=== PATIENT | male | born 2000 | race Caucasian/White ===

== ENCOUNTER 2024-06-22 11:48 | Day surgery (SDC) | payer BC ==
[~2024-06-22] VITALS: Ht 182.9 cm; Wt 89.0 kg
[~2024-06-22 11:48] MED LIST: ACET120S PR; Lactated Ringer's 1,000 ML IV ONE; PROM12.5S PR; RXPROMSY PO
[2024-06-22] MEDS ORDERED: Lactated Ringer's 1,000 ML IV ONE (12:28)
[2024-06-22] MEDS ORDERED: propofoL 40 ML IV ONE (12:40)
[2024-06-22] MEDS ORDERED: FentaNYL Citrate 50 MCG/ML 2 ML Injection ONE (12:40)
[2024-06-22] MEDS ORDERED: Rocuronium Bromide 10 MG/ML 5ML Injection IV ONE ×2 (12:55)
[2024-06-22] MEDS ORDERED: Ondansetron HCl 2 MG / ML 2ML Vial ONE (13:44)
[2024-06-22] MEDS ORDERED: Dexamethasone Sod Phos 10 MG/ML 1ML VIAL ONE (13:44)
--- NOTE | 2024-06-22 13:53 | NUR ---
06/22/24 [facility] DR ENAMORADO, ANESTHESIA ORDERED 2 MG VERSED. PATIENT WOULD LIKE TO REFUSE THIS MEDICATION AND STATES HE DOES NOT NEED IT. PER DR ENAMORADO, ORDER IS "IF NEEDED" OK TO PROCEED WITHOUT.
--- NOTE | 2024-06-22 14:09 | NUR ---
06/22/24 1409 Kiki Troncoso 5ML OF LIDOCAINE 2% WITH EPI 1:100,000 DILUTED WITH NACL 1:1 TO MAKE LIDOCAINE 1% WITH EPI 1:200,000 FOR INJECTION AT [facility].
[2024-06-22] MEDS ORDERED: Lidocaine 2%-Epineph 1:100000 20 ML MDV INJ ONE (14:12)
[2024-06-22 15:18] VITALS: BP 103/58
--- NOTE | 2024-06-22 16:04 | NUR ---
06/22/24 [address] PT UNDERSTOOD DISCHARGE INSTRUCTIONS. MOM LATOSHA HERE WITH HIM TO VERIFY HE NEEDED TO TAKE 2 WEEKS OFF VOLLEY[employer]ALL DRANK WATER AND ATE SALTINES WITHOUT ISSUE
== END 2024-06-22 16:00 | disposition home or self-care (01) ==
LOC: ORSCSDS 11:48
PROVIDERS: Otolaryngology
PROC: 0HB1XZX Excision of Face Skin, External Approach, Diagnostic (ICD-10-PCS; principal; 2024-06-22 13:00)
DX: D18.01 Hemangioma of skin and subcutaneous tissue (principal)
CPT/HCPCS: 88305; J1100; J2405; J2704; J3010; J7120